=== PATIENT | female | born 1960 | race Caucasian/White ===

== ENCOUNTER 2019-08-25 21:02 | Emergency (ER) | payer OTHER, MEDICAID, SELFPAY ==
[2019-08-25 21:10] VITALS: BP 143/72; PULSE 94; RESP 17; TEMP 36.3; O2SAT 98
--- NOTE | 2019-08-25 21:25 | DI.RAD.S_ITS ---
PROCEDURE: XR KNEE LT 3V INDICATIONS: pain Left lower leg / knee TECHNIQUE: 3 views of the knee were acquired. COMPARISON: None. FINDINGS: Bones: No fractures or dislocations. No suspicious bony lesions. Mild degenerative change. Soft tissues: No joint effusion. No suspicious soft tissue calcifications. IMPRESSION: No evidence acute bony abnormality of the left knee. Mild degenerative change. Dictated by: Sarbjit Okeefe M.D. on 08/25/2019 at 22:00 Approved by: Sarbjit Okeefe M.D. on 08/25/2019 at 22:01
--- NOTE | 2019-08-25 21:25 | DI.US.S_ITS ---
PROCEDURE: US PERIPH VENOUS LOW EXTREM LT INDICATIONS: pain Left lower leg / knee TECHNIQUE: Real-time imaging, as well as color and pulse Doppler interrogation, were performed of the lower extremity deep veins from the inguinal ligament to the popliteal fossa. COMPARISON: None. FINDINGS: The common femoral, femoral and popliteal veins are normally compressible, and free of intraluminal thrombus. Color and pulse Doppler demonstrate normal phasic intraluminal flow. There is normal augmentation response to distal compression maneuver. IMPRESSION: Negative duplex ultrasound for left lower extremity DVT. Dictated by: Sarbjit Okeefe M.D. on 08/25/2019 at 22:11 Approved by: Sarbjit Okeefe M.D. on 08/25/2019 at 22:11
--- NOTE | 2019-08-25 21:51 | ED.EXTPRO ---
HPI - Extremity Problem General Chief complaint: Extremity Problem,Nontraumatic Stated complaint: lt lower leg pressure, pain Time Seen by Provider: 08/25/19 21:16 Source: patient Mode of arrival: Ambulatory Limitations: no limitations History of Present Illness HPI Narrative: Patient is a 59-year-old female who presents with left knee pain. She says been ongoing for a month definitely worse throughout the day better in the morning. She feels like her calf is swollen as well. She was given muscle relaxers and pain medication by her PCP she says she only took those for 2 days and has not helped at all. She has a history of of DVT, about 9 years ago. She was only on Coumadin for about 1 month. She denies any chest pain shortness of breath she has some swelling. MD Complaint: extremity pain and extremity swelling Onset (ago): month(s) Pain Consistency: intermittent Location: left and lower extremity Related Data Allergies Allergy/AdvReac Type Severity Reaction Status Date / Time No Known Drug Allergies Allergy Verified 08/25/19 21:21 Review of Systems Review of Systems Narrative: GENERAL: Denies chills,fever HEENT: Denies throat pain RESPIRATORY: Denies dyspnea, cough, wheezing CARDIOVASCULAR: Denies chest pain, palpitations GASTROINTESTINAL: Denies nausea, vomiting MUSCULOSKELETAL: See HPI SKIN: No rash, no laceration, no pruritus NEUROLOGIC: Denies weakness, dizziness, headache, numbness 8 point review of systems is negative except for those stated above and HPI Patient History Medical History COPD (chronic obstructive pulmonary disease) (Acute) Social History Smoking Status: Current every day smoker Social History Smoking Status: Current every day smoker Substance Use Type: does not use Exam Initial Vital Signs Initial Vital Signs: Vital Signs Temperature 97.4 F L 08/25/19 21:10 Pulse Rate 94 H 08/25/19 21:10 Respiratory Rate 17 08/25/19 21:10 Blood Pressure 143/72 H 08/25/19 21:10 Pulse Oximetry 98 08/25/19 21:10 GENERAL: Overweight well-appearing female no acute distress CARDIOVASCULAR: peripheral pulses in tact, cap refill <2 sec RESPIRATORY: No respiratory distress, speaks in full sentences without difficulty EXTREMITIES: Normal range of motion, no clubbing or edema. Neurovascularly intact Left knee she is able to flex to about 90? stable knee distal pedal pulse intact. Mild pain and calf mild swelling noted more in the left leg than the right that NEUROLOGICAL: Cranial nerves II through XII grossly intact. Normal gait and speech. SKIN: Warm, dry, no petechiae, no rashes or lesions. Course Orders Ordered: ED Orders 08/25/19 21:25 US periph venous low extrem lt Stat XR knee LT 3V Stat Vital Signs Vital signs: Vital Signs - 8 hr 08/25/19 21:10 Temperature 97.4 F L Pulse Rate 94 H Respiratory Rate 17 Blood Pressure 143/72 H Pulse Oximetry 98 MDM - Extremity (Nontraumatic) Imaging Data Left knee: Radiologist's impression: PROCEDURE: XR KNEE LT 3V INDICATIONS: pain Left lower leg / knee TECHNIQUE: 3 views of the knee were acquired. COMPARISON: None. FINDINGS: Bones: No fractures or dislocations. No suspicious bony lesions. Mild degenerative change. Soft tissues: No joint effusion. No suspicious soft tissue calcifications. IMPRESSION: No evidence acute bony abnormality of the left knee. Mild degenerative change. Dictated by: Sarbjit Okeefe M.D. on 08/25/2019 at 22:00 Approved by: Sarbjit Okeefe M.D. on 08/25/2019 at 22:01 Venous US: Radiologist's impression: PROCEDURE: US PERIP VENOUS LOW EXTREM LT INDICATIONS: pain Left lower leg / knee TECHNIQUE: Real-time imaging, as well as color and pulse Doppler interrogation, were performed of the lower extremity deep veins from the inguinal ligament to the popliteal fossa. COMPARISON: None. FINDINGS: The common femoral, femoral and popliteal veins are normally compressible, and free of intraluminal thrombus. Color and pulse Doppler demonstrate normal phasic intraluminal flow. There is normal augmentation response to distal compression maneuver. IMPRESSION: Negative duplex ultrasound for left lower extremity DVT. Dictated by: Sarbjit Okeefe M.D. on 08/25/2019 at 22:11 MDM Narrative Medical decision making narrative: Patient's symptoms are suspicious for arthritis. Especially worse after the end of the day. X-ray does not show any significant arthritis DVT study is negative. This time recommend pain control conservative management and follow-up. Discharge Plan Departure Patient Disposition: Home Clinical Impression: Osteoarthritis Qualifiers: Osteoarthritis location: knee Osteoarthritis type: unspecified Laterality: left Qualified Code(s): M17.12 - Unilateral primary osteoarthritis, left knee Discharge Date/Time: 08/25/19 22:20 Instructions: DI for Arthritis Activity Restrictions/Additional Instructions: *You have been diagnosed with left knee osteoarthritis, mild *What to do: No evidence of a blood clot. Recommend wearing the brace while at work *Continue to take medications as directed Tylenol 650 mg every 4-6 hours if needed for pain *Follow up with your primary care provider in 2-3 days *Return to ER if you should have increasing pain, increasing swelling or any new, worsening or concerning symptoms
== END 2019-08-25 22:20 | disposition home or self-care (01) ==
PROVIDERS: Emergency Provider Emergency Medicine
DX: M17.12 Unilateral primary osteoarthritis, left knee (principal)
CPT/HCPCS: 73562; 93971; 99282; 99283

== ENCOUNTER 2019-10-26 12:52 | Emergency (ER) | payer OTHER, SELFPAY ==
[2019-10-26 13:03] VITALS: BP 139/80; PULSE 94; RESP 20; TEMP 36.5; O2SAT 96
--- NOTE | 2019-10-26 13:06 | DI.RAD.S_ITS ---
PROCEDURE: XR SACRUM COCCYX MIN 2V INDICATIONS: fall TECHNIQUE: 3 views of the sacrum and coccyx acquired. COMPARISON: None. FINDINGS: Bones: Slight irregularity is evident involving the anterior cortex of the 4th sacral segment, which may represent a subtle fracture. Anterior positioning of the coccyx with respect to the sacrum probably is chronic or related to previous trauma. There is no dislocation. Moderate degenerative changes about the sacroiliac joints is present. There is no widening of the sacroiliac joints. The remainder of the image osseous structures of the pelvis are intact. However, the entire pelvis was not included. Soft tissues: Visualized bowel gas pattern is normal. No suspicious soft tissue densities. IMPRESSION: Probable fracture involving the anterior 4th sacral segment. CT would be helpful for better interpretation, if indicated. Dictated by: Giancarlo Garrett M.D. on 10/26/2019 at 12:43 Approved by: Giancarlo Garrett M.D. on 10/26/2019 at 12:51
--- NOTE | 2019-10-26 13:06 | DI.RAD.S_ITS ---
PROCEDURE: XR LUMBAR SPINE 2-3V INDICATIONS: fall TECHNIQUE: 3 views of the lumbar spine were acquired. COMPARISON: None. FINDINGS: Bones: 5 [id number] vertebrae are present. There is mild levoscoliotic bony alignment centered at L2-3. No vertebral body compression fractures. No suspicious bony lesions. Mild to moderate degenerative disc disease is present along the lumbosacral line until the L5-S1 level where moderate such degeneration can be seen in also moderately severe facet osteoarthritis is present. Soft tissues: Overlying bowel gas pattern is normal. No suspicious soft tissue calcifications. IMPRESSION: Mild convex leftward scoliosis along the lumbosacral spine, relatively mild degenerative disc disease except for moderate such degeneration at the L5-S1 level. No trauma is found. Dictated by: Alexandre Martinez M.D. on 10/26/2019 at 13:32 Approved by: Alexandre Martinez M.D. on 10/26/2019 at 13:34
[2019-10-26] MEDS: KETOROLAC 60 MG/2 ML VIAL 30 MG IM (14:27)
[2019-10-26] MEDS: HYDROCODONE/ACET 5/325 TABLET 1 TAB PO (14:27)
--- NOTE | 2019-10-26 14:39 | ED.BACK ---
HPI - Back Pain/Injury <LORENZA Ramirez - Last Filed: 10/27/19 00:12> General Chief Complaint: Back Pain/Injury Stated Complaint: Fell on deck alfrede is hurting t-1 Time Seen by Provider: 10/26/19 14:05 Source: patient Mode of arrival: Ambulatory Limitations: no limitations History of Present Illness HPI Narrative: This is a 59-year-old female, smoker, who presents to ED with sacrum/coccyx pain since she fell last night. Patient reports she fell on outside the house wet stairs oleary and landed on her buttock when she was walking down fast. Patient denies incontinence for urinary and bowel function. Patient has some right leg tingling and numbness but denies weakness. Patient reports is able to ambulate but hurts to walk. Patient denies any other injuries such as head or other extremities. Patient had used Tylenol yesterday as self treatment. Related Data Previous Rx's Medication Instructions Recorded hydrocodone-acetaminophen [[place]] 1 tab PO Q6H PRN #10 tab 10/26/19 lidocaine 1 patch TOP DAILY #15 each 10/26/19 Allergies Allergy/AdvReac Type Severity Reaction Status Date / Time No Known Drug Allergies Allergy Verified 08/25/19 21:21 Review of Systems <LORENZA Ramirez - Last Filed: 10/27/19 00:12> Review of Systems Narrative: General: Denies fever, chills, fatigue, malaise, sweats. HEENT: Denies sinus pain, ear pain, sore throat, difficulty swallowing, dizziness. Respiratory: Denies dyspnea, cough, wheezing, hemoptysis, sputum. Cardiovascular: Denies chest pain, palpitations, orthopnea, edema. Gastrointestinal: Denies nausea, vomiting, abdominal pain, diarrhea, constipation, melena. : Denies dysuria, frequency, incontinence, hematuria, urinary retention. Musculoskeletal: See HPI Skin: Denies rash, skin lesions, or other. Neurologic: Denies weakness, headache, numbness, change in speech, confusion, seizures, incoordination. Psychiatric: No concerning psychosocial issues. 12-point review of systems is negative except for those stated above. Patient History <LORENZA Ramirez - Last Filed: 10/27/19 00:12> Medical History Breast tumor (Acute) COPD (chronic obstructive pulmonary disease) (Acute) Liver tumor (Acute) Surgical History History of carpal tunnel surgery (Acute) History of cholecystectomy (Acute) History of intestinal surgery (Acute) Social History Smoking Status: Current every day smoker Smoking Status: Current every day smoker Substance Use Type: does not use Exam <LORENZA Ramirez - Last Filed: 10/27/19 00:12> Narrative Exam Narrative: GEN: Alert, oriented x 3, well appearing and nourished, and in no acute distress. Head: Normal cephalic, atraumatic. No scalp or temporal tenderness, no step-offs, palpable mass or rash. EYES: Pupils are equal, round, and reactive to light and accommodation. Extraocular muscles are intact bilaterally. There is no subconjunctival hemorrhage, exudate and sclera non-icteric. ENT: Bilateral auditory canals and tympanic membranes clear without hemotympanum. Hearing grossly intact. Nose without bleeding, purulent discharge or deviation. Facial sinuses nontender to palpate. Mucous membrane moist, no mucosal lesion. Throat without erythema, tonsillar hypertrophy or exudate. Uvula in midline, airway patent. Neck: Trachea in midline. No JVD, non-tender without lymphadenopathy. No masses or thyroid megaly. Supple, non-tender mid cervical and no meningeal signs. CARDIAC: Normal regular rate and rhythm without murmurs, gallops, or rubs. No chest wall tenderness. No peripheral edema, cyanosis or pallor. Capillary refill is less than 2 seconds. RESPIRATORY: Lungs are clear to auscultate bilaterally. No cough, wheezes, rales, or rhonchi. No stridor, respiratory distress, increase work of breathing, or accessary muscle used. ABD: Abdomen soft, nontender and non-distended. No guarding or rebound tenderness to palpate. Bowel sounds are normal in all 4 quadrants. There is no palpable masses or organomegaly. EXT: Full painless ROM of all extremities with no loss of sensation, strength, effusion or edema. SKIN: Warm, dry, normal color for patient. No erythema, lesions or rash over visible areas. BACK: Tender to palpate sacrum region without crepitance. Nontender without deformity or crepitance in rest of the back. No flank tenderness. NEUROLOGICAL: Alert and oriented to place, time and person. Sensation and motor function intact bilaterally. No facial droops, dysphasia. PSYCHIATRIC: Good judgement and reason, without hallucinations, abnormal affect or abnormal behaviors during the examination. Patient is not suicidal. Initial Vital Signs Initial Vital Signs: Vital Signs Temperature 97.7 F 10/26/19 13:03 Pulse Rate 94 H 10/26/19 13:03 Respiratory Rate 20 10/26/19 13:03 Blood Pressure 139/80 10/26/19 13:03 Pulse Oximetry 96 10/26/19 13:03 <Anika Lilly MD - Last Filed: 10/27/19 18:38> Initial Vital Signs Initial Vital Signs: Vital Signs Temperature 97.7 F 10/26/19 13:03 Pulse Rate 94 H 10/26/19 13:03 Respiratory Rate 20 10/26/19 13:03 Blood Pressure 139/80 10/26/19 13:03 Pulse Oximetry 96 10/26/19 13:03 Scores <LORENZA Ramirez - Last Filed: 10/27/19 00:12> GCS Ellyn coma scale eye opening: Spontaneous Ellyn coma scale verbal response: Orientated [place] coma scale motor response: Obey commands [place] coma scale total score: 15 Course <LORENZA Ramirez - Last Filed: 10/27/19 00:12> Orders Ordered: Discontinued Medications Hydrocodone Bitart/Acetaminophen ([place] 5/325) 1 tab PO NOW ONE Stop: 10/26/19 14:20 Last Admin: 10/26/19 14:27 Dose: 1 tab Documented by: AXEL Ketorolac Tromethamine (Toradol) 30 mg IM NOW ONE Stop: 10/26/19 14:20 Last Admin: 10/26/19 14:27 Dose: 30 mg Documented by: AXEL Vital Signs Vital signs: Vital Signs - 8 hr 10/26/19 13:03 Temperature 97.7 F Pulse Rate 94 H Respiratory Rate 20 Blood Pressure 139/80 Pulse Oximetry 96 <Anika Lilly MD - Last Filed: 10/27/19 18:38> Orders Ordered: Discontinued Medications Hydrocodone Bitart/Acetaminophen ([place] 5/325) 1 tab PO NOW ONE Stop: 10/26/19 14:20 Last Admin: 10/26/19 14:27 Dose: 1 tab Documented by: AXEL Ketorolac Tromethamine (Toradol) 30 mg IM NOW ONE Stop: 10/26/19 14:20 Last Admin: 10/26/19 14:27 Dose: 30 mg Documented by: AXEL Vital Signs Vital signs: Vital Signs - 8 hr 10/26/19 13:03 Temperature 97.7 F Pulse Rate 94 H Respiratory Rate 20 Blood Pressure 139/80 Pulse Oximetry 96 MDM - Back Pain/Injury <Vu LORENZA Chase - Last Filed: 10/27/19 00:12> Differential Diagnosis Differential diagnosis: Likely strain of lumbar region and other (Sacrum contusion, coccyx/sacrum fracture) Medical Records Attestation: I reviewed the patient's medical records. Imaging Data XR-Sacrum and coccyx: Radiologist's impression: [place] [address] XRay Report Signed Patient: Eliane Vazquez EMR#: [id number] : 1960Acct:[id number] Age/Sex: 59 / FDate of Service: 10/26/19 Loc: ED Accession Number: [id number] Procedure: XR sacrum coccyx min 2V Ordering Provider: Anika Lilly MD PROCEDURE: XR SACRUM COCCYX MIN 2V INDICATIONS: fall TECHNIQUE: 3 views of the sacrum and coccyx acquired. COMPARISON: None. FINDINGS: Bones: Slight irregularity is evident involving the anterior cortex of the 4th sacral segment, which may represent a subtle fracture. Anterior positioning of the coccyx with respect to the sacrum probably is chronic or related to previous trauma. There is no dislocation. Moderate degenerative changes about the sacroiliac joints is present. There is no widening of the sacroiliac joints. The remainder of the image osseous structures of the pelvis are intact. However, the entire pelvis was not included. Soft tissues: Visualized bowel gas pattern is normal. No suspicious soft tissue densities. IMPRESSION: Probable fracture involving the anterior 4th sacral segment. CT would be helpful for better interpretation, if indicated. Dictated by: Giancarlo Garrett M.D. on 10/26/2019 at 12:43 Approved by: Giancarlo Garrett M.D. on 10/26/2019 at 12:51 XR-Lumbar spine: Radiologist's impression: Eliane Vazquez 59 F 1960 [place] [address] XRay Report Signed Patient: Eliane Vazquez EMR#: [id number] : 1960Acct:[id number] Age/Sex: 59 / FDate of Service: 10/26/19 Loc: ED Accession Number: [id number] Procedure: XR lumbar spine 2-3V Ordering Provider: Anika Lilly MD PROCEDURE: XR LUMBAR SPINE 2-3V INDICATIONS: fall TECHNIQUE: 3 views of the lumbar spine were acquired. COMPARISON: None. FINDINGS: Bones: 5 [id number] vertebrae are present. There is mild levoscoliotic bony alignment centered at L2-3. No vertebral body compression fractures. No suspicious bony lesions. Mild to moderate degenerative disc disease is present along the lumbosacral line until the L5-S1 level where moderate such degeneration can be seen in also moderately severe facet osteoarthritis is present. Soft tissues: Overlying bowel gas pattern is normal. No suspicious soft tissue calcifications. IMPRESSION: Mild convex leftward scoliosis along the lumbosacral spine, relatively mild degenerative disc disease except for moderate such degeneration at the L5-S1 level. No trauma is found. Dictated by: Alexandre Martinez M.D. on 10/26/2019 at 13:32 Approved by: Alexandre Martinez M.D. on 10/26/2019 at 13:34 [facility] Narrative Medical decision making narrative: This is a 59-year-old female who presents to ED with tailbone pain after she slipped and fall on a wet stairs and landed on her buttock yesterday. Patient denies incontinence for bowel or bladder but reports intermittent mild tingling and numbness to right leg. X-ray test on lumbar does not show acute findings but mild leftward scoliosis and degenerative disc disease. Sacrum Tate sick x-ray test shows probable fracture involving the anterior 4th sacral segment. Patient was medicated with [place] and Toradol injection which patient found to be effective with pain management. Patient advised to use a donut cushion during sitting for comfort. Advised RICE therapy for pain and inflammation. Patient advised to use [id number] Tylenol and or Motrin as needed for discomfort and [place] sparingly for severe pain. Narcotic medication precautions were discussed with the patient and verbalized understanding. Lidocaine patches were prescribed for pain as well. Work off note has been provided for next few days. Return precautions were discussed with the patient and advised to follow with her primary care physician. Patient verbalized understanding and agrees with treatment plan. Discharge Plan Departure Patient Disposition: Home Clinical Impression: Closed fracture of sacrum Qualifiers: Encounter type: initial encounter Fracture morphology: unspecified fracture morphology Qualified Code(s): S32.10XA - Unspecified fracture of sacrum, initial encounter for closed fracture Discharge Date/Time: 10/26/19 14:45 Activity Restrictions/Additional Instructions: You have been diagnosed with [probable fracture on anterior 4th sacral segment from falling.]. What to do: *Take your medications as directed. You were medicated with IM Toradol and [place] while in ED. [place] can cause drowsiness so please take precaution such as not driving, drinking alcohol or operating heavy equipments. It can also cause constipation so please take [id number] stool softener, high-fiber diet and increase oral hydration. You can take [id number] Tylenol and or Motrin as needed for discomfort. You can take Tylenol up to 4000 mg in 24 hour period. Ibuprofen up to 600 to 800 mg 3 times a day as needed for inflammation and pain with food. Ice pack for next couple of days. You also can purchase donut cushion to help with pain while you're sitting. *Follow up with your primary care provider in 2-3 days, call for an appointment. Let them know you were seen in the ED and that we asked you to be seen in follow up. *Return to ED if you have any new, worsening, or concerning symptoms, such as [chest pain, breathing difficulty, or unable to tolerate fluids, tingling/numbness/weakness to lower extremities or incontinence for stool and or bladder function. You may need further imaging test if this occurs.]. Prescriptions: New hydrocodone-acetaminophen [[place]] 5-325 mg tablet 1 tab PO Q6H PRN (Reason: pain) Qty: 10 RF: 0 lidocaine 5 % adhesive patch,medicated 1 patch TOP DAILY Qty: 15 RF: 0 Stand Alone Forms: Work Release Note
== END 2019-10-26 14:45 | disposition home or self-care (01) ==
PROVIDERS: Emergency Provider Nurse Practitioner Family
DX: S32.10XA Unspecified fracture of sacrum, initial encounter for closed fracture (principal); W10.9XXA Fall (on) (from) unspecified stairs and steps, initial encounter
CPT/HCPCS: 72100; 72220; 96372; 99283; J1885

== ENCOUNTER 2020-01-14 10:49 | Emergency (ER) | payer OTHER, MEDICAID, SELFPAY ==
[2020-01-14 11:10] VITALS: BP 164/72; PULSE 100; RESP 28; TEMP 37.2; O2SAT 96; BMI 43.0
[2020-01-14 11:53] LABS: Influenza A - CEPHEID Flu A NEGATIVE (NEGATIVE); Influenza B - CEPHEID Flu B NEGATIVE (NEGATIVE)
[2020-01-14 12:32] VITALS: BP 133/69; PULSE 98; RESP 24; O2SAT 97
--- NOTE | 2020-01-14 15:33 | ED_ITS ---
HPI - URI/Sore Throat <LORENZA Ramon - Last Filed: 01/14/20 21:57> General Chief Complaint: Upper Respiratory Symptoms Stated Complaint: COPD/DIFFICULTY BREATHING/COLD Time Seen by Provider: 01/14/20 11:14 Source: patient Mode of arrival: Ambulatory History of Present Illness HPI Narrative: 59-year-old female with a history of COPD, presents to the emergency department for a cough and shortness of breath for the past 11 days. She states it originally started with rhinorrhea, right ear pain, cough, and sore throat. She states she has noticed increased wheezing due to her COPD and continued sore throat and postnasal drip. She has been using her albuterol inhaler with some relief, she states her inhalers over a year old. She states she also takes Breo Ellipta for COPD and she only has 2-3 puffs left. Patient denies any fevers, chest pain, dizziness, syncope, abdominal pain, nausea, vomiting, diarrhea, or any other concerns. She denies needing a breathing treatment at this time, she states she is here she is worried that she may have another infection such as strep throat. Related Data Previous Rx's Medication Instructions Recorded hydrocodone-acetaminophen [Oakley] 1 tab PO Q6H PRN #10 tab 10/26/19 lidocaine 1 patch TOP DAILY #15 each 10/26/19 albuterol sulfate 2 puff INHALATION Q4-6H PRN #8.5 01/14/20 gram doxycycline hyclate 100 mg PO BID 7 Days #14 cap 01/14/20 fluticasone furoate-vilanterol 1 inhalation INHALATION DAILY #60 01/14/20 [Breo Ellipta] each prednisone 50 mg PO DAILY 5 Days #5 tab 01/14/20 Allergies Allergy/AdvReac Type Severity Reaction Status Date / Time No Known Drug Allergies Allergy Verified 01/14/20 11:09 Review of Systems <LORENZA Ramon - Last Filed: 01/14/20 21:57> Review of Systems Narrative: REVIEW OF SYSTEMS: GENERAL: Denies fevers. HENT: No head trauma or hearing loss. Reports rhinorrhea and sore throat, see HPI. EYES: No loss of vision, double vision, eye pain, irritation or discharge. CARDIOVASCULAR: No chest pain. RESPIRATORY: Complains of cough, see HPI. GASTROINTESTINAL: No nausea, vomiting, diarrhea, or constipation. MUSCULOSKELETAL: No weakness or injury. INTEGUMENTARY: No rash, lesions, or pruritus. Patient History <LORENZA Ramon - Last Filed: 01/14/20 21:57> Medical History Breast tumor (Acute) COPD (chronic obstructive pulmonary disease) (Acute) Liver tumor (Acute) Surgical History History of carpal tunnel surgery (Acute) History of cholecystectomy (Acute) History of intestinal surgery (Acute) Social History Smoking Status: Current every day smoker Smoking Status: Current every day smoker alcohol intake frequency: holidays/special occasions only Substance Use Type: does not use Exam <LORENZA Ramon - Last Filed: 01/14/20 21:57> Initial Vital Signs Initial Vital Signs: Vital Signs Temperature 98.9 F 01/14/20 11:10 Pulse Rate 100 H 01/14/20 11:10 Respiratory Rate 28 H 01/14/20 11:10 Blood Pressure 164/72 H 01/14/20 11:10 Pulse Oximetry 96 01/14/20 11:10 PHYSICAL EXAMINATION: GENERAL: Well groomed, alert, and cooperative. Answers questions promptly and appropriately. Vital signs noted. HENT: Normocephalic, atraumatic. Ear canals patent. TMs intact without mucus or erythema. Oropharynx with erythema, postnasal drip noted.. Tonsils are not present. EYES: Conjunctiva pink, sclera white, no periorbital swelling. No discharge. CHEST: Normal to inspection and without deformities. CARDIOVASCULAR: S1 and S2 sounds normal. Regular rate and rhythm, no murmurs, clicks, or bruits. RESPIRATORY: Normal respiratory rate, trachea midline, airway patent. No stridor, nasal flaring or accessory muscle use. Able to speak in full sentences. Lungs expiratory wheezes noted to bases of lungs, productive cough noted throughout examination. MUSCULOSKELETAL: Normal gait and coordination. Equal tone and mass bilaterally. EXTREMITIES: Moves all extremities. SKIN: Warm, dry, soft, appropriate color for ethnicity. No lesions, rashes, or wounds to visualized areas. NEURO: Alert and Oriented X 3. Good coordination. No ataxia or cognitive issues. PSYCH: Appropriate affect and mood. <Carter Olsen DO - Last Filed: 01/22/20 20:37> Initial Vital Signs Initial Vital Signs: Vital Signs Temperature 98.9 F 01/14/20 11:10 Pulse Rate 100 H 01/14/20 11:10 Respiratory Rate 28 H 01/14/20 11:10 Blood Pressure 164/72 H 01/14/20 11:10 Pulse Oximetry 96 01/14/20 11:10 Course <LORENZA Ramon - Last Filed: 01/14/20 21:57> Course Course Narrative: Patient was offered a DuoNeb in the emergency department, she declined at this time. Orders Ordered: ED Orders 01/14/20 11:15 Influenza A & B (PCR) Stat Consultations Consultation #1: Patient staffed with Dr. Olsen. Vital Signs Vital signs: Vital Signs - 8 hr 01/14/20 11:10 01/14/20 12:32 Temperature 98.9 F Pulse Rate 100 H 98 H Respiratory Rate 28 H 24 Blood Pressure 164/72 H 133/69 Pulse Oximetry 96 97 <Carter Olsen DO - Last Filed: 01/22/20 20:37> Orders Ordered: ED Orders 01/14/20 11:15 Influenza A & B (PCR) Stat Vital Signs Vital signs: Vital Signs - 8 hr 01/14/20 11:10 01/14/20 12:32 Temperature 98.9 F Pulse Rate 100 H 98 H Respiratory Rate 28 H 24 Blood Pressure 164/72 H 133/69 Pulse Oximetry 96 97 MDM - URI/Sore Throat <LORENZA Ramon - Last Filed: 01/14/20 21:57> Medical Records Attestation: I reviewed the patient's medical records. Lab Data Attestation: I reviewed the patient's lab results. Labs: Lab Results 01/14/20 Range/Units 11:15 Influenza A (RT-PCR) Flu a negative (NEGATIVE) Influenza B (RT-PCR) Flu b negative (NEGATIVE) Point of Care Testing Rapid Strep A Negative MDM Narrative Medical decision making narrative: 59-year-old female with a history of COPD complains of upper respiratory symptoms with wheezing for the past 11 days. Due to prolonged duration of illness, wheezes on examination, and symptoms that have not been improving, patient was put on doxycycline to cover for bacterial upper respiratory pathogens. I discussed with patient about the possibility of prednisone, she states this significantly helped with her wheezing and feels like she could benefit from a course of this at this time. Her albuterol was also refilled as it was over a year old, we discussed that after the expiration date albuterol does not work as affectively. Additionally, patient is running out of Countdown which I refilled, she had the inhaler with her and the same dosage was given. Less concern for pneumonia due to lack of crackles on examination, no tachycardia, and patient is afebrile. However, due to significant comorbidities, doxycycline was used which also covers for pneumonia pathogens as patient is at high risk for developing this infection especially due to prolonged duration of symptoms. Patient was given very strict return precautions, she agrees to plan of care verbalized understanding. Less concern for cardiac etiology due to presence of upper respiratory symptoms such as rhinorrhea and sore throat, wheezing, and history of COPD--patient also denied chest pain. Less likely CHF due to lack of history and presence of upper respiratory tract symptoms. <Carter Olsen, DO - Last Filed: 01/22/20 20:37> Lab Data Labs: Lab Results 01/14/20 Range/Units 11:15 Influenza A (RT-PCR) Flu a negative (NEGATIVE) Influenza B (RT-PCR) Flu b negative (NEGATIVE) Point of Care Testing Rapid Strep A Negative Discharge Plan Departure Patient Disposition: Home Clinical Impression: Bronchitis COPD (chronic obstructive pulmonary disease) Qualifiers: COPD type: unspecified COPD Qualified Code(s): J44.9 - Chronic obstructive pulmonary disease, unspecified Discharge Date/Time: 01/14/20 12:33 Instructions: DI for Acute Bronchitis Activity Restrictions/Additional Instructions: Thank you for entrusting me with your care today. As discussed, I have given you a steroid, an antibiotic, and have refilled your inhalers. These were sent to [facility] in [place]. Please take these as directed. Please call your doctor today or tomorrow and be seen for re-evaluation in the next 1-2 weeks for follow-up. Return emergency department immediately if he develops any worsening symptoms such as chest pain, worsening shortness of breath, high fevers, uncontrollable vomiting, or any other concerns. Prescriptions: New prednisone 50 mg tablet 50 mg PO DAILY 5 Days Qty: 5 RF: 0 doxycycline hyclate 100 mg capsule 100 mg PO BID 7 Days Qty: 14 RF: 0 albuterol sulfate 90 mcg/actuation HFA aerosol inhaler 2 puff INHALATION Q4-6H PRN (Reason: shortness of breath or wheezing) Qty: 8.5 RF: 0 Breo Ellipta 100-25 mcg/dose blister with device 1 inhalation INHALATION DAILY Qty: 60 RF: 0 No Action hydrocodone-acetaminophen [Oakley] 5-325 mg tablet 1 tab PO Q6H PRN (Reason: pain) Qty: 10 RF: 0 lidocaine 5 % adhesive patch,medicated 1 patch TOP DAILY Qty: 15 RF: 0 <Carter Olsen, DO - Last Filed: 01/22/20 20:37> Sign Out Provider Sign Out Attestation: Dr Olsen Co-Sign Statement: I was available for consultation during this patient's emergency department visit. This chart is signed by myself for administrative purposes only. I did not have direct contact with this patient during this visit. They were seen independently by the APC.
== END 2020-01-14 12:33 | disposition home or self-care (01) ==
PROVIDERS: Emergency Medicine; Emergency Provider Nurse Practitioner
DX: J40 Bronchitis, not specified as acute or chronic (principal); J44.9 Chronic obstructive pulmonary disease, unspecified
CPT/HCPCS: 87502; 87880; 99281; 99282

== ENCOUNTER → 2020-02-02 11:43 | Outpatient (CLI) | payer OTHER, MEDICAID, SELFPAY ==
[2020-02-03 21:52] LABS: COVID19 Sendout Not Detected (Not Detected)
== END ==
PROVIDERS: Visit Provider Physician Assistant
DX: R05 Cough (principal)
CPT/HCPCS: 87635

== ENCOUNTER 2020-02-02 12:02 | Emergency (ER) | payer OTHER, MEDICAID, SELFPAY ==
[2020-02-02] VITALS (7 sets, daily range): BP systolic 117–128; BP diastolic 66–71; PULSE 89–103; RESP 18–36; TEMP 36.2–37; O2SAT 64–97; BMI 44.9
--- NOTE | 2020-02-02 12:40 | DI.RAD.S_ITS ---
PROCEDURE: XR CHEST 2V INDICATIONS: cough, URI sx for last 7 weeks TECHNIQUE: 2 views of the chest were acquired. COMPARISON: [facility], CR, XR CHEST 2VW, 05/28/2017, 15:14. FINDINGS: Surgical changes and devices: None. Lungs and pleura: Lungs are clear. No pleural effusions or pneumothorax. Calcified granuloma within the right lung is unchanged. Mediastinum: Mediastinal contours are normal. Heart size is normal. Bones and chest wall: No suspicious bony abnormalities. Dextroconvex curvature of the thoracic spine is noted. Soft tissues appear unremarkable. IMPRESSION: Stable chest. No acute cardiopulmonary process is evident. Dictated by: Giancarlo Garrett M.D. on 02/02/2020 at 13:02 Approved by: Giancarlo Garrett M.D. on 02/02/2020 at 13:02
[2020-02-02] MEDS: ALBUTEROL/IPRATROPIUM 3 ML AMPUL INH (12:46)
[2020-02-02] MEDS: ALBUTEROL 2.5 MG/3 ML NEB (ADULT) 10 MG INH (12:46)
--- NOTE | 2020-02-02 13:59 | PC.NURSE ---
Pt states had swab for the COVID-19 this morning.
--- NOTE | 2020-02-02 14:10 | PC.NURSE ---
Provider (Vu) advised of pt having had the COVID-19 swab done,which she was aware. Obtained swab for the Resp Panel,labeled & sent to lab.
[2020-02-02 14:40] LABS: Add Manual Diff / Slide Review NO; Basophils Absolute Auto 0 /uL (0-100); Basophils Percent Auto 0.3 % (0-2); Eosinophils Absolute Auto 300 /uL (0-450); Eosinophils Percent Auto 2.8 % (2-4); Hematocrit 37.7 % (36-46); Hemoglobin 12.4 g/dL (12.0-16.0); Lymphocytes Absolute Auto 3200 /uL (1100-4500); Mean Corpuscular HGB Conc 32.8 % (30-36); Mean Corpuscular Volume 82.4 fL (80-100); Monocytes Absolute Auto 500 /uL (0-900); Monocytes Percent Auto 5.3 % (3-14); Neutrophils Absolute Auto 6200 /uL (1500-7000); Neutrophils Percent Auto 60.6 % (50-75); Platelet Count 250 X10^3/uL (150-400); Red Blood Cell Count 4.58 X10^6/uL (4.0-5.2); White Blood Cell Count 10.3 X10^3/uL (4.5-11.0)
[2020-02-02 14:41] LABS: Alanine Aminotransferase 18 IU/L (<35); Albumin 3.9 g/dL (3.5-5.0); Albumin Globulin Ratio 1.2 (1.0-2.8); Alkaline Phosphatase 85 U/L (38-126); Aspartate Aminotransferase 24 IU/L (14-36); BUN Creatinine Ratio 15.6 (6-22); Bilirubin Total 0.4 mg/dL (0.2-1.3); Blood Urea Nitrogen 10 mg/dL (7-17); Calcium 9.1 mg/dL (8.4-10.2); Carbon Dioxide 32 mmol/L (22-32); Chloride 102 mmol/L (98-107); Creatine Kinase 268 U/L (30-135); Estimated Glomerular Filt Rate > 60.0 mL/min (>60); Globulin 3.2 g/dL (1.7-4.1); Glucose 129 mg/dL (70-100); HEMOLYSIS < 15 (0-50); Lipase 87 U/L (23-300); Magnesium 1.9 mg/dL (1.6-2.3); Potassium 3.7 mmol/L (3.4-5.1); Sodium 138 mmol/L (137-145); Total Protein 7.1 g/dL (6.3-8.2)
[2020-02-02 14:53] LABS: Troponin I < 0.012 ng/mL (0.01-0.034)
[2020-02-02 14:56] LABS: CKMB % Relative Index 2.1 % (1.5-5.0); Creatine Kinase MB 5.71 ng/mL (<2.37)
[2020-02-02] MEDS: methylPREDNISolone 125 MG/2 ML VIAL IV (15:15)
[2020-02-02 15:26] LABS: Adenovirus Not Detected (Not Detect); Bordetella pertussis Not Detected (Not Detect); Chlamydophila pneumoniae Not Detected (Not Detect); Coronavirus 229E Not Detected (Not Detect); Coronavirus HKU1 Not Detected (Not Detect); Coronavirus NL 63 Not Detected (Not Detect); Coronavirus OC43 Not Detected (Not Detect); Human Metapneumovirus Not Detected (Not Detect); Human Rhinovirus/Enterovirus Not Detected (Not Detect); Influenza A Not Detected (Not Detect); Influenza B Not Detected (Not Detect); Mycoplasma pneumoniae Not Detected (Not Detect); Parainfluenza Virus 1 Not Detected (Not Detect); Parainfluenza Virus 2 Not Detected (Not Detect); Parainfluenza Virus 3 Not Detected (Not Detect); Parainfluenza Virus 4 Not Detected (Not Detect); Respiratory Syncytial Virus Not Detected (Not Detect)
--- NOTE | 2020-02-02 15:28 | PC.NURSE ---
Pt declined IV fluids.Requesting to go home now.Provider advised.
--- NOTE | 2020-02-02 15:39 | ED.SOB ---
HPI - SOB/Dyspnea <LORENZA Ramirez - Last Filed: 02/02/20 17:07> General Chief Complaint: Shortness of Breath/Dyspnea Stated Complaint: SOB/Cough/Not Feeling Well Time Seen by Provider: 02/02/20 12:22 Source: patient Mode of arrival: Ambulatory Limitations: no limitations History of Present Illness HPI Narrative: This is a 59-year-old female, smoker, who presents to ED with cough, short of breath, wheezing, left chest cramping discomfort and not feeling well. Patient reports URI symptoms including sore throat, headache, cough started 7 weeks ago after she was exposed to her young granddaughter and seen in ED in 01/14/2020 for an evaluation and discharged to home with 5 day course of steroids, albuterol inhaler and antibiotic medication doxycycline for 7 day course. Patient reports she has not feeling improved with this medication regimen. Patient is unsure of fever but since she lives in a camper she feels always cold. Patient has a history of COPD, asthma, appy index, liver tumor. Patient went into respiratory clinic today and was referred to here in ED for an evaluation and treatment. Related Data Previous Rx's Medication Instructions Recorded hydrocodone-acetaminophen [Russell] 1 tab PO Q6H PRN #10 tab 10/26/19 lidocaine 1 patch TOP DAILY #15 each 10/26/19 albuterol sulfate 2 puff INHALATION Q4-6H PRN #8.5 01/14/20 gram fluticasone furoate-vilanterol 1 inhalation INHALATION DAILY #60 01/14/20 [Breo Ellipta] each albuterol sulfate 2 inhalation INHALATION Q4-6H PRN 02/02/20 #1 each benzonatate [Tessalon Perles] 100 mg PO BID-TID PRN #14 cap 02/02/20 prednisone 40 mg PO DAILY 5 Days tab 02/02/20 Allergies Allergy/AdvReac Type Severity Reaction Status Date / Time varenicline [From Chantix] AdvReac Verified 02/02/20 12:25 Review of Systems <LORENZA Ramirez - Last Filed: 02/02/20 17:07> Review of Systems Narrative: General: Denies fever, chills, (+) fatigue, malaise, sweats. HEENT: Denies sinus pain, (+) sinus congestion, ear pain, (+) sore throat, difficulty swallowing, dizziness. Respiratory: See HPI Cardiovascular: Denies (+) left side chest cramps, palpitations, orthopnea, edema. Gastrointestinal: Denies nausea, vomiting, abdominal pain, (+) diarrhea, constipation, melena. : Denies dysuria, frequency, incontinence, hematuria, urinary retention. Musculoskeletal: Denies weakness, joint pain or bony pain. Skin: Denies rash, skin lesions, or other. Neurologic: Denies weakness, (+) headache, numbness, change in speech, confusion, seizures, incoordination. Psychiatric: No concerning psychosocial issues. 12-point review of systems is negative except for those stated above. Patient History <LOERNZA Ramirez - Last Filed: 02/02/20 17:07> Medical History Breast tumor (Acute) COPD (chronic obstructive pulmonary disease) (Acute) Liver tumor (Acute) Surgical History History of carpal tunnel surgery (Acute) History of cholecystectomy (Acute) History of intestinal surgery (Acute) Social History Smoking Status: Current every day smoker Smoking Status: Current every day smoker alcohol intake frequency: holidays/special occasions only Substance Use Type: does not use Exam <LORENZA Ramirez - Last Filed: 02/02/20 17:07> Narrative Exam Narrative: GEN: Alert, oriented x 3, ill appearing and well- nourished, and in moderate respiratory distress. Head: Normal cephalic, atraumatic. No scalp or temporal tenderness, palpable mass or rash. EYES: Pupils are equal, round, and reactive to light and accommodation. Extraocular muscles are intact bilaterally. There is no subconjunctival hemorrhage, exudate and sclera non-icteric. ENT: Bilateral auditory canals and tympanic membranes clear. Hearing grossly intact. Nose without bleeding, purulent discharge or deviation. Bilateral turbinates erythematous and edematous. Facial sinuses nontender to palpate. Mucous membrane moist, no mucosal lesion. Throat without erythema, tonsillar hypertrophy or exudate. Uvula in midline, airway patent. Neck: Trachea in midline. No JVD, non-tender without lymphadenopathy. No masses or thyroid megaly. Supple, non-tender and no meningeal signs. CARDIAC: Normal regular rate and rhythm without murmurs, gallops, or rubs. No chest wall tenderness. No peripheral edema, cyanosis or pallor. Capillary refill is less than 2 seconds. RESPIRATORY: Lungs wheeze to auscultate bilaterally with audible wheezing, frequent nonproductive cough with increase work of breathing. No stridor noted. ABD: Abdomen soft, nontender and non-distended. No guarding or rebound tenderness to palpate. Bowel sounds are normal in all 4 quadrants. There is no palpable masses or organomegaly. EXT: Full painless ROM of all extremities with no loss of sensation, strength, effusion or edema. SKIN: Warm, dry, normal color for patient. No erythema, lesions or rash over visible areas. BACK: Nontender without deformity or crepitance. No flank tenderness. NEUROLOGICAL: Alert and oriented to place, time and person. Sensation and motor function intact bilaterally. No facial droops, dysphasia. PSYCHIATRIC: Good judgement and reason, without hallucinations, abnormal affect or abnormal behaviors during the examination. Initial Vital Signs Initial Vital Signs: Vital Signs Temperature 98.6 F 02/02/20 12:25 Pulse Rate 103 H 02/02/20 12:25 Respiratory Rate 18 02/02/20 12:25 Blood Pressure 127/66 02/02/20 12:25 Pulse Oximetry 97 02/02/20 12:25 <Carter Olsen DO - Last Filed: 02/02/20 17:16> Initial Vital Signs Initial Vital Signs: Vital Signs Temperature 98.6 F 02/02/20 12:25 Pulse Rate 103 H 02/02/20 12:25 Respiratory Rate 18 02/02/20 12:25 Blood Pressure 127/66 02/02/20 12:25 Pulse Oximetry 97 02/02/20 12:25 Scores <LORENZA Ramirez - Last Filed: 02/02/20 17:07> GCS [place] coma scale eye opening: Spontaneous [place] coma scale verbal response: Orientated [place] coma scale motor response: Obey commands [place] coma scale total score: 15 Course <LORENZA Ramirez - Last Filed: 02/02/20 17:07> Orders Ordered: ED Orders 02/02/20 12:30 EKG-12 Lead Stat 02/02/20 12:40 XR chest 2V Stat 02/02/20 14:10 Respiratory Panel (Film Array) Stat 02/02/20 14:29 Complete Blood Count AUTO DIFF Stat Comprehensive Metabolic Panel Stat Lipase Stat Magnesium Stat Troponin & CK Cardiac Panel Stat Discontinued Medications Albuterol (Ventolin) 10 mg INH NOW ONE Stop: 02/02/20 12:41 Last Admin: 02/02/20 13:05 Dose: Not Given Documented by: [email or web address] Albuterol (Ventolin) 10 mg INH NOW ONE Stop: 02/02/20 12:44 Last Admin: 02/02/20 12:46 Dose: 10 mg Documented by: LISANDRA Albuterol/Ipratropium (Duoneb) 3 ml INH NOW ONE Stop: 02/02/20 12:41 Last Admin: 02/02/20 12:46 Dose: 3 ml Documented by: LISANDRA Sodium Chloride (Normal Saline 0.9%) 500 mls @ 1,000 mls/hr IV BOLUS ONE Stop: 02/02/20 15:45 Last Admin: 02/02/20 15:27 Dose: Not Given Documented by: CTRCONSUELO Methylprednisolone (Solu-Medrol 125 Mg Vial) 125 mg IV NOW ONE Stop: 02/02/20 14:09 Last Admin: 02/02/20 15:15 Dose: 125 mg Documented by: [email or web address] Vital Signs Vital signs: Vital Signs - 8 hr 02/02/20 12:25 02/02/20 12:30 02/02/20 13:06 Temperature 98.6 F Pulse Rate 103 H Respiratory Rate 18 24 Blood Pressure 127/66 Blood Pressure [Right Arm] Pulse Oximetry 97 97 97 02/02/20 13:20 02/02/20 14:00 02/02/20 16:16 Temperature 98.1 F 97.1 F L 98.5 F Pulse Rate 91 H 97 H 91 H Respiratory Rate 34 H 36 H 21 Blood Pressure Blood Pressure [Right Arm] 120/66 117/70 128/71 Pulse Oximetry 64 L 95 93 02/02/20 16:26 Temperature Pulse Rate 89 Respiratory Rate 24 Blood Pressure Blood Pressure [Right Arm] Pulse Oximetry 97 <Carter Olsen - Last Filed: 02/02/20 17:16> Orders Ordered: ED Orders 02/02/20 12:30 EKG-12 Lead Stat 02/02/20 12:40 XR chest 2V Stat 02/02/20 14:10 Respiratory Panel (Film Array) Stat 02/02/20 14:29 Complete Blood Count AUTO DIFF Stat Comprehensive Metabolic Panel Stat Lipase Stat Magnesium Stat Troponin & CK Cardiac Panel Stat Discontinued Medications Albuterol (Ventolin) 10 mg INH NOW ONE Stop: 02/02/20 12:41 Last Admin: 02/02/20 13:05 Dose: Not Given Documented by: [email or web address] Albuterol (Ventolin) 10 mg INH NOW ONE Stop: 02/02/20 12:44 Last Admin: 02/02/20 12:46 Dose: 10 mg Documented by: LISANDRA Albuterol/Ipratropium (Duoneb) 3 ml INH NOW ONE Stop: 02/02/20 12:41 Last Admin: 02/02/20 12:46 Dose: 3 ml Documented by: LISANDRA Sodium Chloride (Normal Saline 0.9%) 500 mls @ 1,000 mls/hr IV BOLUS ONE Stop: 02/02/20 15:45 Last Admin: 02/02/20 15:27 Dose: Not Given Documented by: SOBEIDA Methylprednisolone (Solu-Medrol 125 Mg Vial) 125 mg IV NOW ONE Stop: 02/02/20 14:09 Last Admin: 02/02/20 15:15 Dose: 125 mg Documented by: CTRCONSUELO Vital Signs Vital signs: Vital Signs - 8 hr 02/02/20 12:25 02/02/20 12:30 02/02/20 13:06 Temperature 98.6 F Pulse Rate 103 H Respiratory Rate 18 24 Blood Pressure 127/66 Blood Pressure [Right Arm] Pulse Oximetry 97 97 97 02/02/20 13:20 02/02/20 14:00 02/02/20 16:16 Temperature 98.1 F 97.1 F L 98.5 F Pulse Rate 91 H 97 H 91 H Respiratory Rate 34 H 36 H 21 Blood Pressure Blood Pressure [Right Arm] 120/66 117/70 128/71 Pulse Oximetry 64 L 95 93 02/02/20 16:26 Temperature Pulse Rate 89 Respiratory Rate 24 Blood Pressure Blood Pressure [Right Arm] Pulse Oximetry 97 MDM - SOB/Dyspnea <Vu LORENZA Chase - Last Filed: 02/02/20 17:07> Differential Diagnosis Differential diagnosis: Likely acute exacerbation of chronic obstructive airways disease, community acquired pneumonia, asthma with exacerbation and other (bronchitis) Medical Records Attestation: I reviewed the patient's medical records. Lab Data Attestation: I reviewed the patient's lab results. Result diagrams: 02/02/20 14:29 02/02/20 14:29 Labs: Lab Results 02/02/20 02/02/20 02/02/20 Range/Units 14:10 14:29 14:29 WBC 10.3 (4.5-11.0) X10^3/uL RBC 4.58 (4.0-5.2) X10^6/uL Hgb 12.4 (12.0-16.0) g/dL Hct 37.7 (36-46) % MCV 82.4 (80-100) fL MCH 27.0 (26-34) PG MCHC 32.8 (30-36) % RDW 14.0 (11.6-14.8) % Plt Count 250 (150-400) X10^3/uL Neut % (Auto) 60.6 (50-75) % Lymph % (Auto) 31.0 (25-40) % [place] % (Auto) 5.3 (3-14) % Eos % (Auto) 2.8 (2-4) % Baso % (Auto) 0.3 (0-2) % Neut # (Auto) 6200 (5772-9419) /uL Lymph # (Auto) 3200 (0970-0352) /uL [place] # (Auto) 500 (0-900) /uL Eos # (Auto) 300 (0-450) /uL Baso # (Auto) 0 (0-100) /uL Sodium 138 (137-145) mmol/L Potassium 3.7 (3.4-5.1) mmol/L Chloride 102 (98-107) mmol/L Carbon Dioxide 32 (22-32) mmol/L BUN 10 (7-17) mg/dL Creatinine 0.64 (0.52-1.04) mg/dL Estimated GFR > 60.0 (>60) mL/min BUN/Creatinine Ratio 15.6 (6-22) Glucose 129 H (70-100) mg/dL Calcium 9.1 (8.4-10.2) mg/dL Magnesium 1.9 (1.6-2.3) mg/dL Total Bilirubin 0.4 (0.2-1.3) mg/dL AST 24 (14-36) IU/L ALT 18 (<35) IU/L Alkaline Phosphatase 85 (38-126) U/L Total Creatine Kinase 268 H (30-135) U/L CK-MB (CK-2) 5.71 H (<2.37) ng/mL CK-MB (CK-2) Rel Index 2.1 (1.5-5.0) % Troponin I < 0.012 (0.01-0.034) ng/mL Total Protein 7.1 (6.3-8.2) g/dL Albumin 3.9 (3.5-5.0) g/dL Globulin 3.2 (1.7-4.1) g/dL Albumin/Globulin Ratio 1.2 (1.0-2.8) Lipase 87 (23-300) U/L Chlamy pneumoniae PCR Not detected (Not Detect) Adenovirus (PCR) Not detected (Not Detect) B.parapertussis DNA PCR Not detected (Not Detect) Coronavirus OC43 (PCR) Not detected (Not Detect) Coronavirus HKU1 (PCR) Not detected (Not Detect) Coronavirus 229E (PCR) Not detected (Not Detect) Coronavirus NL63 (PCR) Not detected (Not Detect) Human Metapneumovir PCR Not detected (Not Detect) Influenza Type A (PCR) Not detected (Not Detect) Influenza Type B (PCR) Not detected (Not Detect) M. pneumoniae (PCR) Not detected (Not Detect) Parainfluenza 1 (PCR) Not detected (Not Detect) Parainfluenza 2 (PCR) Not detected (Not Detect) Parainfluenza 3 (PCR) Not detected (Not Detect) Parainfluenza 4 (PCR) Not detected (Not Detect) RSV (PCR) Not detected (Not Detect) Entero/Rhino (PCR) Not detected (Not Detect) Imaging Data Chest x-ray: Radiologist's Impression: Eliane Vazquez 59 F [address] [place] [id number] XRay Report Signed Patient: Eliane Vazquez EMR#: [id number] : 1960Acct:[id number] Age/Sex: 59 / FDate of Service: 02/02/20 Loc: ED Accession Number: [id number] Procedure: XR chest 2V Ordering Provider: Vu Chase PROCEDURE: XR CHEST 2V INDICATIONS: cough, URI sx for last 7 weeks TECHNIQUE: 2 views of the chest were acquired. COMPARISON: [facility], CR, XR CHEST 2VW, 05/28/2017, 15:14. FINDINGS: Surgical changes and devices: None. Lungs and pleura: Lungs are clear. No pleural effusions or pneumothorax. Calcified granuloma within the right lung is unchanged. Mediastinum: Mediastinal contours are normal. Heart size is normal. Bones and chest wall: No suspicious bony abnormalities. Dextroconvex curvature of the thoracic spine is noted. Soft tissues appear unremarkable. IMPRESSION: Stable chest. No acute cardiopulmonary process is evident. Dictated by: Giancarlo Garrett M.D. on 02/02/2020 at 13:02 Approved by: Giancarlo Garrett M.D. on 02/02/2020 at 13:02 ECG Data Attestation: I personally reviewed and interpreted this ECG as follows: Prior ECG tracings: not available for review Interpretation: Sinus rhythm rate at 99. Left [place] dominant VA int 166, QRS dur 62, QT/QTc 346/[address] elevation or depression. MDM Narrative Medical decision making narrative: This is a 59 year old female who has history of COPD and asthma as a history presents to ED with wheezing, short of breath, productive coughing and URI symptoms for last 7 weeks. Patient is afebrile, had audible wheezing and wheeze in all lobes with moderate respiratory distress with tachypnea. Patient's O2 sat was maintained from 95-97% in room air. Chest x-ray was not indicating pneumonia. Patient received DuoNeb and continuous neb for 10 mg albuterol and felt improvement in short of breath and wheezing. Respiratory panel was negative. Patient had rizvi virus swabbed add respiratory clinic before she was referred to ED. patient had completed 7 day course of doxycycline and 5 day course of steroids in 01/14/2020 when she was evaluated ED at that time a without much improvement. Patient reports she is not currently using inhaled corticosteroids since her insurance is not covering it. She has been using frequently albuterol inhaler at home. Patient's EKG showed sinus rhythm rate at [address] elevation or depression. CPK and CK-MB was elevated to 5.71 with normal CK-MB index negative troponin. Patient declined IV fluid therapy. There was no leukocytosis in CBC. Considered ordering procalcitonin for indication of bacterial infection for bronchitis but patient reports she is feeling much better at this time and would like to be discharged to home. She states will return to ED with any worsening symptoms such as dyspnea, fever, short of breath and she will try outpatient treatment of albuterol inhaler and oral steroids for next 5 days. Discussed with patient at this time antibiotic medication is not indicated per today's lab and x-ray test findings. Patient verbalized understanding and agreement with the treatment plan. <Carter Olsen, DO - Last Filed: 02/02/20 17:16> Lab Data Labs: Lab Results 02/02/20 02/02/20 02/02/20 Range/Units 14:10 14:29 14:29 WBC 10.3 (4.5-11.0) X10^3/uL RBC 4.58 (4.0-5.2) X10^6/uL Hgb 12.4 (12.0-16.0) g/dL Hct 37.7 (36-46) % MCV 82.4 (80-100) fL MCH 27.0 (26-34) PG MCHC 32.8 (30-36) % RDW 14.0 (11.6-14.8) % Plt Count 250 (150-400) X10^3/uL Neut % (Auto) 60.6 (50-75) % Lymph % (Auto) 31.0 (25-40) % [place] % (Auto) 5.3 (3-14) % Eos % (Auto) 2.8 (2-4) % Baso % (Auto) 0.3 (0-2) % Neut # (Auto) 6200 (9242-4408) /uL Lymph # (Auto) 3200 (2464-5140) /uL [place] # (Auto) 500 (0-900) /uL Eos # (Auto) 300 (0-450) /uL Baso # (Auto) 0 (0-100) /uL Sodium 138 (137-145) mmol/L Potassium 3.7 (3.4-5.1) mmol/L Chloride 102 (98-107) mmol/L Carbon Dioxide 32 (22-32) mmol/L BUN 10 (7-17) mg/dL Creatinine 0.64 (0.52-1.04) mg/dL Estimated GFR > 60.0 (>60) mL/min BUN/Creatinine Ratio 15.6 (6-22) Glucose 129 H (70-100) mg/dL Calcium 9.1 (8.4-10.2) mg/dL Magnesium 1.9 (1.6-2.3) mg/dL Total Bilirubin 0.4 (0.2-1.3) mg/dL AST 24 (14-36) IU/L ALT 18 (<35) IU/L Alkaline Phosphatase 85 (38-126) U/L Total Creatine Kinase 268 H (30-135) U/L CK-MB (CK-2) 5.71 H (<2.37) ng/mL CK-MB (CK-2) Rel Index 2.1 (1.5-5.0) % Troponin I < 0.012 (0.01-0.034) ng/mL Total Protein 7.1 (6.3-8.2) g/dL Albumin 3.9 (3.5-5.0) g/dL Globulin 3.2 (1.7-4.1) g/dL Albumin/Globulin Ratio 1.2 (1.0-2.8) Lipase 87 (23-300) U/L Chlamy pneumoniae PCR Not detected (Not Detect) Adenovirus (PCR) Not detected (Not Detect) B.parapertussis DNA PCR Not detected (Not Detect) Coronavirus OC43 (PCR) Not detected (Not Detect) Coronavirus HKU1 (PCR) Not detected (Not Detect) Coronavirus 229E (PCR) Not detected (Not Detect) Coronavirus NL63 (PCR) Not detected (Not Detect) Human Metapneumovir PCR Not detected (Not Detect) Influenza Type A (PCR) Not detected (Not Detect) Influenza Type B (PCR) Not detected (Not Detect) M. pneumoniae (PCR) Not detected (Not Detect) Parainfluenza 1 (PCR) Not detected (Not Detect) Parainfluenza 2 (PCR) Not detected (Not Detect) Parainfluenza 3 (PCR) Not detected (Not Detect) Parainfluenza 4 (PCR) Not detected (Not Detect) RSV (PCR) Not detected (Not Detect) Entero/Rhino (PCR) Not detected (Not Detect) Discharge Plan Departure Patient Disposition: Home Clinical Impression: COPD with acute exacerbation, Bronchitis Discharge Date/Time: 02/02/20 16:26 Instructions: DI for Acute Bronchitis Activity Restrictions/Additional Instructions: You have been diagnosed with [COPD exacerbation and bronchitis. Chest x-ray does not show acute cardiopulmonary process. There is no increase in white count. Chemistry tests were unremarkable. There is no increase in Troponin. You have received IV Solu-Medrol 125 mg, DuoNeb and continuous albuterol nebulizer treatment while in ED which you found to be helpful.]. What to do: *Take your medications as directed. Please take prednisone once a day for next 5 days starting tomorrow. You can take Tessalon Perles for cough as needed at night before going to sleep. Albuterol inhaler 2 puffs every 4-6 hours as needed for short of breath, wheezing, cough. This medication has been transmitted to [facility] in [place]. Please use Mucinex for decongestant and mucus as needed. Please hydrate yourself well. *Follow up with your primary care provider in 2-3 days, call for an appointment. Let them know you were seen in the ED and that we asked you to be seen in follow up. *Return to ED if you have any new, worsening, or concerning symptoms, such as [chest pain, breathing difficulty, unable to tolerate fluids, feeling like fainting, high fever, or any acute concerns]. Prescriptions: New albuterol sulfate 90 mcg/actuation aerosol powdr breath activated 2 inhalation INHALATION Q4-6H PRN (Reason: shortness of breath or wheezing) Qty: 1 RF: 0 benzonatate [Tessalon Perles] 100 mg capsule 100 mg PO BID-TID PRN (Reason: cough) Qty: 14 RF: 0 prednisone 20 mg tablet 40 mg PO DAILY 5 Days RF: 0 No Action hydrocodone-acetaminophen [Russell] 5-325 mg tablet 1 tab PO Q6H PRN (Reason: pain) Qty: 10 RF: 0 lidocaine 5 % adhesive patch,medicated 1 patch TOP DAILY Qty: 15 RF: 0 albuterol sulfate 90 mcg/actuation HFA aerosol inhaler 2 puff INHALATION Q4-6H PRN (Reason: shortness of breath or wheezing) Qty: 8.5 RF: 0 Breo Ellipta 100-25 mcg/dose blister with device 1 inhalation INHALATION DAILY Qty: 60 RF: 0 Referrals: Joe Goldman MD [Primary Care Provider] - <Carter Olsen, - Last Filed: 02/02/20 17:16> Cosign ED Attending Cosignature Attestation: Dr Olsen Co-Sign Statement: I was available for consultation during this patient's emergency department visit. This chart is signed by myself for administrative purposes only. I did not have direct contact with this patient during this visit. They were seen independently by the APC.
== END 2020-02-02 16:26 | disposition home or self-care (01) ==
PROVIDERS: Emergency Provider Nurse Practitioner Family; PCP Family Medicine
DX: J44.1 Chronic obstructive pulmonary disease with (acute) exacerbation (principal); J20.9 Acute bronchitis, unspecified; J44.0 Chronic obstructive pulmonary disease with (acute) lower respiratory infection
CPT/HCPCS: 36415; 71046; 80053; 82550; 82553; 83690; 83735; 84484; 85025; 87633; 87635; 93005; 94640; 96374; 99284; J2930; J7613

== ENCOUNTER 2021-03-15 14:57 | Emergency (ER) | payer OTHER, MEDICAID, SELFPAY ==
--- NOTE | 2021-03-15 15:01 | ED.GENADULT ---
HPI - General Adult General Chief complaint: Extremity Injury, Upper Stated complaint: fall 2 days ago, right wrist pain Time Seen by Provider: 03/15/21 15:00 Source: patient Mode of arrival: Ambulatory Limitations: no limitations History of Present Illness HPI narrative: Patient is a 60-year-old female not on anticoagulation who fell 2 days ago and injured her right wrist. Yesterday she went to a walk-in clinic at an outside facility. She did not have any x-rays performed. She was wrapped in an Matt bandage. She comes to the emergency department today for increased discomfort Related Data Previous Rx's Medication Instructions Recorded hydrocodone-acetaminophen [Lawai] 1 tab PO Q6H PRN #10 tab 10/26/19 lidocaine 1 patch TOP DAILY #15 each 10/26/19 albuterol sulfate 2 puff INHALATION Q4-6H PRN #8.5 01/14/20 gram fluticasone furoate-vilanterol 1 inhalation INHALATION DAILY #60 01/14/20 [Breo Ellipta] each albuterol sulfate 2 inhalation INHALATION Q4-6H PRN 02/02/20 #1 each benzonatate [Tessalon Perles] 100 mg PO BID-TID PRN #14 cap 02/02/20 Allergies Allergy/AdvReac Type Severity Reaction Status Date / Time varenicline [From Chantix] AdvReac Nightmare Verified 03/15/21 15:04 Review of Systems Constitutional Constitutional: Denies fever(s) Cardiovascular Cardiovascular: Denies chest pain and Denies dyspnea Respiratory Respiratory: Denies dyspnea Gastrointestinal Gastrointestinal: Denies abdominal pain Musculoskeletal Musculoskeletal: Denies tingling Comments: Right wrist pain Integumentary/Breasts Skin/Breast: Denies rash Neurologic Neurologic: Denies tingling Hematologic/Lymphatic On Anticoagulants: No Allergic/Immunologic Allergic/Immunologic: Denies urticaria Patient History Medical History Breast tumor COPD (chronic obstructive pulmonary disease) Liver tumor Surgical History History of carpal tunnel surgery History of cholecystectomy History of intestinal surgery Social History Smoking Status: Current every day smoker Smoking Status: Current every day smoker alcohol intake frequency: holidays/special occasions only Substance Use Type: does not use Exam Initial Vital Signs Initial Vital Signs: Vital Signs Temperature 98.0 F 03/15/21 15:02 Pulse Rate 98 H 03/15/21 15:02 Respiratory Rate 18 03/15/21 15:02 Pulse Oximetry 95 03/15/21 15:02 Const General: cooperative and comfortable Limitations: mental status not altered HENMT Head: normal to inspection and normocephalic Cardio Pulses: radial pulses present on the right Skin Lesions: no lesions Rashes: no rashes Neuro Sensory Exam: no sensory deficits noted Extrem Other: Right shoulder and right elbow were unremarkable. She does have tenderness to palpation over the distal radius and the distal ulna and discomfort flexion-extension of the wrist. Psych Appearance: grossly normal and well kempt Procedures Orthopedic Splinting/Casting Injury #1: Side: right Upper Extremity Injury Location: wrist Upper Extremity Immobilizer: wrist splint Post splinting neuro exam: no change Post splinting vascular exam: no change Placed by: Nursing Course Orders Ordered: ED Orders 03/15/21 15:13 XR wrist RT min 3V Stat Vital Signs Vital signs: Vital Signs - 8 hr 03/15/21 15:02 03/15/21 16:18 Temperature 98.0 F Pulse Rate 98 H 91 H Respiratory Rate 18 18 Blood Pressure 131/64 Pulse Oximetry 95 99 Medical Decision Making Imaging Data Extremity x-ray #1: Radiologist's Impression: [address] [id number] ReportSigned Patient: Eliane Vazquez EMR#: [id number]: [id number]:[id number]/Sex: 60 / FDate of Service: 03/15/21Loc: EDAccession Number: [id number] Procedure: XR wrist RT min 3V Ordering Provider: Carter Olsen D.O. PROCEDURE: XR WRIST RT MIN 3V INDICATIONS: fall 2 days ago with wrist pain TECHNIQUE: 4 views of the wrist were acquired. COMPARISON: None. FINDINGS: Bones: No fractures or dislocations. No suspicious bony lesions. Scattered degenerative subchondral sclerosis and spurring. Soft tissues: No suspicious soft tissue calcifications. IMPRESSION: No fracture. If the patient's symptoms do not improve recommend followup radiographs in 10 days to assess for healing sclerosis/occult injury. Dictated by: Ruy Hoang M.D. on 03/15/2021 at 15:47 Approved by: Ruy Hoang M.D. on 03/15/2021 at 15:48 [facility] Narrative Medical decision making narrative: She is neurovascularly intact. There were no fractures noted on the x-rays. She was placed in a removable wrist splint. She was given conservative treatments and instructions for follow-up. She expressed understanding agreement. Discharge Plan Departure Patient Disposition: Home Clinical Impression: Sprain of right wrist Instructions: DI for Wrist Sprain Activity Restrictions/Additional Instructions: There were no fractures noted on the x-rays. Recommend that you continue with keeping your wrist iced. You can use the wrist splint as needed. Contact your primary provider for a follow-up. Prescriptions: No Action hydrocodone-acetaminophen [Lawai] 5-325 mg tablet 1 tab PO Q6H PRN (Reason: pain) Qty: 10 RF: 0 lidocaine 5 % adhesive patch,medicated 1 patch TOP DAILY Qty: 15 RF: 0 albuterol sulfate 90 mcg/actuation HFA aerosol inhaler 2 puff INHALATION Q4-6H PRN (Reason: shortness of breath or wheezing) Qty: 8.5 RF: 0 Breo Ellipta 100-25 mcg/dose blister with device 1 inhalation INHALATION DAILY Qty: 60 RF: 0 albuterol sulfate 90 mcg/actuation aerosol powdr breath activated 2 inhalation INHALATION Q4-6H PRN (Reason: shortness of breath or wheezing) Qty: 1 RF: 0 benzonatate [Tessalon Perles] 100 mg capsule 100 mg PO BID-TID PRN (Reason: cough) Qty: 14 RF: 0 Referrals: Joe Goldman MD [Primary Care Provider] -
[2021-03-15 15:02] VITALS: PULSE 98; RESP 18; TEMP 36.7; O2SAT 95; BMI 46.8
--- NOTE | 2021-03-15 15:13 | DI.RAD.S_ITS ---
PROCEDURE: XR WRIST RT MIN 3V INDICATIONS: fall 2 days ago with wrist pain TECHNIQUE: 4 views of the wrist were acquired. COMPARISON: None. FINDINGS: Bones: No fractures or dislocations. No suspicious bony lesions. Scattered degenerative subchondral sclerosis and spurring. Soft tissues: No suspicious soft tissue calcifications. IMPRESSION: No fracture. If the patient's symptoms do not improve recommend followup radiographs in 10 days to assess for healing sclerosis/occult injury. Dictated by: Ruy Hoang M.D. on 03/15/2021 at 15:47 Approved by: Ruy Hoang M.D. on 03/15/2021 at 15:48
[2021-03-15 16:18] VITALS: BP 131/64; PULSE 91; RESP 18; O2SAT 99
== END 2021-03-15 16:19 | disposition home or self-care (01) ==
PROVIDERS: Emergency Provider Emergency Medicine; PCP Family Medicine
DX: S63.501A Unspecified sprain of right wrist, initial encounter (principal); W19.XXXA Unspecified fall, initial encounter
CPT/HCPCS: 73110; 99283